=== PATIENT | male | born 1995 | race Two or more races ===

== ENCOUNTER → 2021-08-17 | Emergency (ER) | payer OTHER ==
[~2021-08-17] VITALS: Ht 157.5 cm; Wt 81.6 kg
[~2021-08-17] MED LIST: PERCOCET 5-3251 EACH PO
== END | disposition home or self-care (01) ==
LOC: ER 13:09
DX: S82.845A Nondisplaced bimalleolar fracture of left lower leg, initial encounter for closed fracture (principal); S93.04XA Dislocation of right ankle joint, initial encounter; X58.XXXA Exposure to other specified factors, initial encounter; Y92.89 Other specified places as the place of occurrence of the external cause; Z03.818 Encounter for observation for suspected exposure to other biological agents ruled out

== ENCOUNTER 2021-08-20 12:25 | Outpatient (CLI) | payer OTHER | END 2021-08-20 13:16 | disposition home or self-care (01) | LOC: TOM 12:25 | PROVIDERS: ATTEND Orthopaedic Surgery | DX: S82.851A Displaced trimalleolar fracture of right lower leg, initial encounter for closed fracture (principal) ==

== ENCOUNTER → 2021-08-24 | Day surgery (SDC) | payer OTHER | END | disposition home or self-care (01) | LOC: CIR.AMB 07:00 | PROVIDERS: ATTEND Orthopaedic Surgery | DX: S82.61XA Displaced fracture of lateral malleolus of right fibula, initial encounter for closed fracture (principal); S82.51XA Displaced fracture of medial malleolus of right tibia, initial encounter for closed fracture; S92.191A Other fracture of right talus, initial encounter for closed fracture; S93.431A Sprain of tibiofibular ligament of right ankle, initial encounter; S93.421A Sprain of deltoid ligament of right ankle, initial encounter; Z20.822 Contact with and (suspected) exposure to COVID-19 | CPT/HCPCS: 27822; 28445; 27696; C1776 ==

== ENCOUNTER 2021-10-12 09:52 | Outpatient (CLI) | payer OTHER | END 2021-10-12 15:00 | disposition home or self-care (01) | LOC: LAB 09:52 | PROVIDERS: ATTEND Orthopaedic Surgery | DX: D64.89 Other specified anemias (principal); N39.0 Urinary tract infection, site not specified; D68.8 Other specified coagulation defects; E11.9 Type 2 diabetes mellitus without complications; B95.62 Methicillin resistant Staphylococcus aureus infection as the cause of diseases classified elsewhere; E88.89 Other specified metabolic disorders; E16.1 Other hypoglycemia; E03.8 Other specified hypothyroidism; S82.851D Displaced trimalleolar fracture of right lower leg, subsequent encounter for closed fracture with routine healing; S93.431D Sprain of tibiofibular ligament of right ankle, subsequent encounter; Z76.89 Persons encountering health services in other specified circumstances; I49.8 Other specified cardiac arrhythmias; I10 Essential (primary) hypertension ==

== ENCOUNTER → 2021-10-23 | Day surgery (SDC) | payer OTHER | END | disposition home or self-care (01) | LOC: ADM 10-21 11:45 → CIR.AMB 07:00 | PROVIDERS: ATTEND Orthopaedic Surgery | DX: T84.84XD Pain due to internal orthopedic prosthetic devices, implants and grafts, subsequent encounter (principal); S82.851D Displaced trimalleolar fracture of right lower leg, subsequent encounter for closed fracture with routine healing | CPT/HCPCS: 27829; 20680; C1776 ==

== ENCOUNTER 2021-11-19 10:51 | Outpatient (CLI) | payer OTHER | END 2021-11-19 10:57 | disposition home or self-care (01) | LOC: RAD 10:51 | PROVIDERS: ATTEND Orthopaedic Surgery | DX: S93.431D Sprain of tibiofibular ligament of right ankle, subsequent encounter (principal) ==

== ENCOUNTER → 2022-01-28 | Outpatient (CLI) | payer OTHER | END | disposition home or self-care (01) | LOC: RAD 08:41 | PROVIDERS: ATTEND Orthopaedic Surgery | DX: S93.431D Sprain of tibiofibular ligament of right ankle, subsequent encounter (principal) ==

== ENCOUNTER 2022-02-05 08:23 | Outpatient (CLI) | payer OTHER | END 2022-02-05 15:09 | disposition home or self-care (01) | LOC: LAB 08:23 | PROVIDERS: ATTEND Orthopaedic Surgery | DX: E55.9 Vitamin D deficiency, unspecified (principal); M85.9 Disorder of bone density and structure, unspecified ==